=== PATIENT | female | born 1960 | race African-American/Black ===

== ENCOUNTER 2021-12-18 12:02 | Inpatient (IN) | payer OTHER, MEDICAID ==
[~2021-12-18] VITALS: Ht 167.6 cm; Wt 119.1 kg
[~2021-12-18 12:02] MED LIST: ALB5IS NEB; CALCTAB25 PO; ELVI1TAB5 PO; FERR-7 PO; GABA100C9 PO; LEVO125T7 PO; LEVO500T31 PO; LISI-716 PO; METF-370 PO; MULT-228 PO; OMEP20TA PO; PRAV20TA3 PO
[2021-12-18] MEDS ORDERED: ASPirin 81 mg TAB PO ONE (12:30)
[2021-12-18 13:35] LABS: Basophils # (auto) 0 10 ^3/uL (0-0.2); Basophils % (auto) 0.1 % (0.0-2.0); Eosinophils # (auto) 0.1 10 ^3/uL (0-0.8); Eosinophils % (auto) 0.6 % (0.0-7.0); Hematocrit 39.3 % (36.0-46.0); Hemoglobin 13.2 g/dL (12.2-16.2); Lymphocytes # (auto) 1.1 10 ^3/uL (0.4-5.4); Lymphocytes % (auto) 10.3 % (10.0-50.0); Mean Corpuscular Hemoglobin 30.7 pg (28.0-32.0); Mean Corpuscular Hgb Conc. 33.7 g/dL (32.0-36.0); Mean Corpuscular Volume 91.1 fL (80.0-100.0); Monocytes # (auto) 0.7 10 ^3/uL (0-1.3); Monocytes % (auto) 6.4 % (0.0-12.0); Neutrophils % (auto) 82.6 % (37.0-80.0); Red Blood Cells 4.31 10^6/uL (4.0-5.20); Red Cell Distribution Width 14.1 % (11.8-14.3)
[2021-12-18 13:45] LABS: Albumin 3.7 g/dL (3.4-5.0); Calcium 8.7 mg/dL (8.5-10.1); Magnesium 2.5 mg/dL (1.6-2.6)
[2021-12-18 13:53] LABS: BUN/Creatinine Ratio 14.8; Bilirubin, Total 0.5 mg/dL (0.2-1.0); Total Protein 7.4 g/dL (6.4-8.2)
[2021-12-18] MEDS ORDERED: MORPHINE SULFATE 4 MG/ML SYR/VIAL IV ONE (14:30)
[2021-12-18] MEDS ORDERED: ONDANSETRON HCL 4 MG/2 ML VIAL IV ONE (14:30)
[2021-12-18] MEDS ORDERED: hydrALAZINE HCL 20 MG/ML VL IV PRN (19:45)
[2021-12-18] MEDS ORDERED: MORPHINE SULFATE 4 MG/ML SYR/VIAL IV PRN (19:45)
[2021-12-18] MEDS ORDERED: DOCUSATE SOD 100 MG CAP PO PRN (19:45)
[2021-12-18] MEDS ORDERED: ONDANSETRON HCL 4 MG/2 ML VIAL IV PRN (19:45)
[2021-12-18] MEDS ORDERED: ACETAMINOPHEN 325 MG TAB PO PRN ×2 (19:45)
[2021-12-18] MEDS ORDERED: DEXTROSE (50%) 50ML SYRG IV PRN (19:45)
[2021-12-18] MEDS ORDERED: TEMAZEPAM 15 MG CAP PO PRN (19:45)
[2021-12-18] MEDS ORDERED: NITROGLYCERIN 0.4 MG SL TAB SL PRN (19:45)
[2021-12-18] MEDS ORDERED: cefTRIAXone 1GM/50ML D5W 50 ML IV ONE (20:00)
[2021-12-18] MEDS ORDERED: IPRATROPIUM BROM 0.5 MG/2.5ML INH SOL NEB PRN (20:15)
[2021-12-18 20:30] LABS: Cholesterol 109 mg/dL (< 200)
[2021-12-18 20:33] LABS: HDL Cholesterol 59 mg/dL (40-59); LDL Cholesterol 46 mg/dL (< 100); Triglycerides 61 mg/dL (< 150)
[2021-12-18] MEDS ORDERED: InsuLIN REG 1unit/0.01ml Soln (100units/ml) SC SCH (22:00)
[2021-12-18] MEDS ORDERED: ALBUTEROL SULF 2.5 MG/0.5ML(0.5%) NEB SOLN NEB PRN (22:00)
[2021-12-18] MEDS: SODIUM CHLOR 0.9% PF (SALINE LOCK) 10ML VIAL/SYR IV SCH (22:26)
[2021-12-18] MEDS: GABAPENTIN 100 MG CAP PO SCH (22:26)
[2021-12-18] MEDS: ACCU-CHEK COMFORT CURVE STRIP VI SCH (22:27)
[2021-12-18 23:00] VITALS: BP 127/62
[2021-12-18 23:11] VITALS: BP 113/71
[2021-12-18 23:21] VITALS: BP 113/71
[2021-12-18 23:39] VITALS: BP 113/71
[2021-12-19] VITALS (7 sets, daily range): BP systolic 100–123; BP diastolic 60–76
[2021-12-19] MEDS: HYDROcodone-ACET 5/325MG TAB PO PRN ×3 (02:11→15:54)
[2021-12-19 05:42] LABS: Urine Bacteria FEW /hpf (None Seen); Urine Blood Negative /uL (Negative); Urine Hyaline Cast FEW /lpf (0 - 2); Urine Mucus FEW (None Seen); Urine WBC 4 /hpf (0 - 5)
[2021-12-19 05:44] LABS: Basophils # (auto) 0 10 ^3/uL (0-0.2); Basophils % (auto) 0.5 % (0.0-2.0); Eosinophils # (auto) 0.1 10 ^3/uL (0-0.8); Eosinophils % (auto) 1.2 % (0.0-7.0); Hematocrit 37.1 % (36.0-46.0); Hemoglobin 12.5 g/dL (12.2-16.2); Lymphocytes # (auto) 2.3 10 ^3/uL (0.4-5.4); Lymphocytes % (auto) 29.2 % (10.0-50.0); Mean Corpuscular Hemoglobin 30.7 pg (28.0-32.0); Mean Corpuscular Hgb Conc. 33.6 g/dL (32.0-36.0); Mean Corpuscular Volume 91.2 fL (80.0-100.0); Monocytes # (auto) 0.8 10 ^3/uL (0-1.3); Monocytes % (auto) 10.2 % (0.0-12.0); Neutrophils # (auto) 4.6 10 ^3/uL (1.6-8.6); Neutrophils % (auto) 58.9 % (37.0-80.0); Nucleated Red Blood Cells % 0.1 %; Red Blood Cells 4.07 10^6/uL (4.0-5.20); Red Cell Distribution Width 13.7 % (11.8-14.3); White Blood Cell 7.8 10^3/uL (4.4-10.8)
[2021-12-19 06:00] LABS: Albumin 3.2 g/dL (3.4-5.0); BUN/Creatinine Ratio 12.4; Calcium 8.2 mg/dL (8.5-10.1)
[2021-12-19 06:03] LABS: Bilirubin, Total 0.3 mg/dL (0.2-1.0); Total Protein 6.7 g/dL (6.4-8.2)
[2021-12-19] MEDS: SODIUM CHLOR 0.9% PF (SALINE LOCK) 10ML VIAL/SYR IV SCH ×2 (06:25→15:24)
[2021-12-19] MEDS: InsuLIN REG 1unit/0.01ml Soln (100units/ml) SC SCH ×3 (06:25→17:00)
[2021-12-19] MEDS: ACCU-CHEK COMFORT CURVE STRIP VI SCH ×3 (06:26→17:18)
[2021-12-19] MEDS: GABAPENTIN 100 MG CAP PO SCH ×2 (06:53→15:26)
[2021-12-19] MEDS ORDERED: LEVOTHYROXINE SODIUM 25 MCG TAB PO SCH (07:00)
[2021-12-19] MEDS ORDERED: LEVOTHYROXINE SODIUM 100 MCG TAB PO SCH (07:00)
[2021-12-19] MEDS ORDERED: ENOXAPARIN SOD 40 MG/0.4 ML SYRINGE SC SCH (10:00)
[2021-12-19] MEDS ORDERED: MULTIPLE VITAMIN TAB PO SCH (10:00)
[2021-12-19] MEDS ORDERED: PRAVASTATIN SODIUM 20 MG TAB PO SCH (10:00)
[2021-12-19] MEDS ORDERED: PANTOPRAZOLE 40 MG/10 ML VIAL INJ IV SCH (10:00)
[2021-12-19] MEDS ORDERED: PRAV20TA3 PO (10:48)
[2021-12-19] MEDS ORDERED: GABA300C10 PO (10:48)
[2021-12-19] MEDS ORDERED: TRIATAB3 PO (10:48)
[2021-12-19] MEDS ORDERED: METF-371 PO (10:48)
[2021-12-19] MEDS ORDERED: AMLO-489 PO (10:48)
[2021-12-19] MEDS ORDERED: FERR325T20 PO (10:48)
[2021-12-19] MEDS ORDERED: FUR20T PO (10:48)
[2021-12-19] MEDS ORDERED: OMEP-260 PO (10:48)
[2021-12-19] MEDS ORDERED: BICT1TAB PO (10:48)
[2021-12-19] MEDS ORDERED: SITA100T7 PO (10:48)
[2021-12-19] MEDS ORDERED: [UNRECOGNIZED DRUG - CODE] PO (10:48)
[2021-12-19] MEDS ORDERED: POTA-220 PO (10:49)
[2021-12-19] MEDS ORDERED: CIPR250T3 PO (15:24)
[2021-12-19] MEDS ORDERED: cefTRIAXone 1GM/50ML D5W 50 ML IV SCH (21:00)
[2021-12-19] MEDS ORDERED: ASPirin 81 mg TAB PO SCH (22:00)
== END 2021-12-19 18:17 | disposition home or self-care (01) | DRG 556 ==
LOC: ER 12:02 → TELE 19:35 → TELE-CENTR 22:03
PROVIDERS: ADMIT Registered Nurse; ATTEND Registered Nurse
DX: M62.838 Other muscle spasm (principal); N39.0 Urinary tract infection, site not specified; I13.0 Hypertensive heart and chronic kidney disease with heart failure and stage 1 through stage 4 chronic kidney disease, or unspecified chronic kidney disease; I50.32 Chronic diastolic (congestive) heart failure; Z68.41 Body mass index [BMI] 40.0-44.9, adult; R07.89 Other chest pain; E11.22 Type 2 diabetes mellitus with diabetic chronic kidney disease; E66.9 Obesity, unspecified; E78.5 Hyperlipidemia, unspecified; N18.2 Chronic kidney disease, stage 2 (mild); Z20.822 Contact with and (suspected) exposure to COVID-19; E03.9 Hypothyroidism, unspecified; R51.9 Headache, unspecified; G47.33 Obstructive sleep apnea (adult) (pediatric); J44.9 Chronic obstructive pulmonary disease, unspecified; M19.90 Unspecified osteoarthritis, unspecified site; M94.0 Chondrocostal junction syndrome [Tietze]; Z98.84 Bariatric surgery status; Z80.9 Family history of malignant neoplasm, unspecified; Z82.3 Family history of stroke; Z90.49 Acquired absence of other specified parts of digestive tract; Z79.84 Long term (current) use of oral hypoglycemic drugs
CPT/HCPCS: 36415; 70450; 71045; 80053; 80061; 81001; 82962; 83036; 83735; 84436; 84443; 84480; 84484; 85025; 93005; 93306; 93886; 96365; 96375; C9113; G0378; J0696; J1815; J2405